=== PATIENT | female | born 1995 | race Caucasian/White ===

== ENCOUNTER → 2016-11-02 | Outpatient (REF) | payer OTHER, MEDICAID ==
[~2016-11-02] MED LIST: COLA100C PO; IBUP600T26 PO; IBUP800T23 PO; STUACAP PO; TYLE325T5 PO; ZOFR20TA PO
== END ==
LOC: M LAB REF 16:57
PROVIDERS: ATTEND Obstetrics & Gynecology
DX: Z11.3 Encounter for screening for infections with a predominantly sexual mode of transmission (principal)

== ENCOUNTER → 2016-11-06 | Outpatient (CLI) | payer OTHER, MEDICAID ==
--- NOTE | 2016-11-06 11:16 | REP ---
Clinical: Pelvic pain . Technique: Transabdominal pelvic ultrasound followed by transvaginal examination for better evaluation of the endometrium and adnexa with color Doppler evaluation of the ovaries. Findings: Bladder is unremarkable and measures 6.8 x 7.8 x 4.2 cm . Normal anteverted uterus measures 8.7 x 4.1 x 5.3 cm . The endometrial complex measures 10 mm thickness. No discrete uterine or endometrial abnormalities are appreciated. Bilateral ovaries are normal in appearance and vascularity without evidence for torsion. Right ovary measures 3.5 x 3.0 x 2.5 cm with 2.1 cm hemorrhagic cyst ; R I = 0.32 of . Left ovary measures 3.2 x 2.6 x 2.4 cm with multiple follicles ; R I = 0.48 . No pelvic fluid or adnexal mass lesion . Impression: 1. normal pelvic ultrasound. 2.1 cm right hemorrhagic ovarian cyst. No evidence for torsion. Signed by Abraham Paige MD 11/06/2016 11:08 A
== END ==
LOC: M RAD 10:32
PROVIDERS: ATTEND Obstetrics & Gynecology
DX: R10.2 Pelvic and perineal pain (principal); N83.201 Unspecified ovarian cyst, right side

== ENCOUNTER → 2017-01-30 | Outpatient (REF) | payer OTHER, MEDICAID ==
[~2017-01-30] MED LIST changes: -COLA100C PO; +COLA100C3 PO
== END ==
LOC: M LAB REF 17:01
PROVIDERS: ATTEND Obstetrics & Gynecology
DX: R10.2 Pelvic and perineal pain (principal)

== ENCOUNTER → 2017-02-04 | Outpatient (CLI) | payer MEDICAID, OTHER ==
--- NOTE | 2017-02-04 09:11 | REP ---
Clinical: Right upper quadrant pain. Technique: Real time donahue scale ultrasound examination using curved array transducer. Findings: Liver and pancreas are normal in contour, size, and echogenicity without focal hepatic or pancreatic lesions identified. The gallbladder is normal and without gallstones, wall thickening, or pericholecystic fluid. No biliary ductal dilatation is appreciated and the common bile duct measures 4 mm diameter. Right kidney is relatively normal in reniform shape without hydronephrosis and includes simple appearing 3 cm upper pole cyst. Right kidney measures 11.8 x 3.6 x 5.4 cm. No ascites. Visualized abdominal aorta normal. Impression: 3 cm simple right renal cyst. Otherwise normal right upper quadrant ultrasound. Signed by Abraham Paige MD 02/04/2017 09:03 A
--- NOTE | 2017-02-04 14:07 | REP ---
Clinical: Right lower quadrant pelvic pain. Technique: Transabdominal pelvic ultrasound followed by transvaginal examination for better evaluation of the endometrium and adnexa with color Doppler evaluation of the ovaries. Findings: Bladder is unremarkable and measures approximately 7.1 x 9.0 x 5.3 cm . Normal anteverted uterus measures 9.7 x 4.4 x 6.9 cm . The endometrial complex measures 5.7 - 8.9 mm thickness. Cash Checker is suggest the possibility of bicornuate versus septated uterus which is not confirmed on prior ultrasound dated 11/06/[address] dated 11/02/2011. No discrete uterine or endometrial abnormalities are appreciated. Bilateral ovaries are normal in appearance and vascularity without evidence for torsion. Right ovary measures 2.1 x 1.9 x 2.2 cm ; R I = 0.55 . Left ovary measures 3.1 x 2.1 x 2.9 cm with 1.8 cm hemorrhagic cyst / follicle; R I = 0.48 . Possible 1.2 cm right paraovarian cyst cannot be excluded Impression: 1. Possible 1.2 cm right paraovarian cyst cannot be excluded. Consider follow-up examination in 4-6 weeks to evaluate for resolution. 2. Transverse as described possible bicornuate versus septated uterus which is not confirmed by prior ultrasound or CT and correlation may be warranted. Signed by Abraham Paige MD 02/04/2017 01:58 P
== END ==
LOC: M RAD 07:24
PROVIDERS: ATTEND Obstetrics & Gynecology
DX: N28.1 Cyst of kidney, acquired (principal)

== ENCOUNTER → 2017-03-06 | Outpatient (CLI) | payer OTHER, MEDICAID ==
[2017-03-06 19:49] LABS: MEAN CORPUSCULAR HEMOGLOBIN 28.4 pg (27.0-33.0); MEAN CORPUSCULAR VOLUME 88.8 fl (80.0-96.0); WHITE BLOOD COUNT 6.7 K/mm3 (4.0-10.0)
[2017-03-06 20:15] LABS: FREE T4 0.95 NG/DL (0.78-1.33)
--- NOTE | 2017-03-07 05:01 | REP ---
Clinical: Chest and abdominal pain with shortness of breath . Comparison: 08/26/2016 . Technique: PA and lateral. Findings: The mediastinum and cardiac silhouette are normal. The lung hensley are clear and without acute consolidation, effusion, or pneumothorax. The skeletal structures are intact and normal. Impression: 1. No acute cardiopulmonary process. Signed by Abraham Paige MD 03/07/2017 04:53 A
[2017-03-07 10:57] LABS: CONTROL LINE HPYORI INT CTR LINE PRESENT
== END ==
LOC: M WUC 17:20
PROVIDERS: ATTEND Obstetrics & Gynecology
DX: R10.84 Generalized abdominal pain (principal); R06.02 Shortness of breath

== ENCOUNTER → 2017-03-18 | Outpatient (REF) | payer OTHER | LOC: M LAB REF 16:45 | PROVIDERS: ATTEND Physician Assistant | DX: J02.9 Acute pharyngitis, unspecified (principal) ==

== ENCOUNTER → 2017-04-22 | Outpatient (CLI) | payer OTHER ==
[~2017-04-22] MED LIST changes: -COLA100C3 PO; +COLA100C5 PO; +IBUP-1022 PO; +IBUP1TAB7 PO; -IBUP600T26 PO; -IBUP800T23 PO; +MELA3CAP2 PO; +PRENTAB40 PO
[2017-04-22 21:12] LABS: BASO % 0.3 % (0.0-1.0); EOS # 0.1 K/mm3 (0.0-0.50); EOS % 1.3 % (0.0-3.0); LARGE UNSTAINED CELL # 0.1 K/mm3 (0.0-0.4); LARGE UNSTAINED CELL % 1.3 % (0.0-4.0); LYMPH # 1.3 K/mm3 (1.5-6.5); LYMPH % 20.7 % (24.0-44.0); MEAN CORPUSCULAR HEMOGLOBIN 28.9 pg (27.0-33.0); MEAN CORPUSCULAR HGB CONC 32.2 g/dl (32.0-36.5); MEAN CORPUSCULAR VOLUME 89.8 fl (80.0-96.0); MONO # 0.3 K/mm3 (0.0-0.8); MONO % 4.7 % (0.0-5.0); NEUTROPHILS # 4.3 K/mm3 (1.8-7.7); NEUTROPHILS % 71.7 % (36.0-66.0); PLATELET COUNT, AUTOMATED 215 k/mm3 (150-450); RED CELL DISTRIBUTION WIDTH 14.5 % (11.5-14.5); WHITE BLOOD COUNT 5.9 K/mm3 (4.0-10.0)
[2017-04-24 10:34] LABS: HBsAg Prenatal NEGATIVE (NEGATIVE)
== END ==
LOC: M WUC 16:01
PROVIDERS: ATTEND Advanced Practice Midwife
DX: Z34.81 Encounter for supervision of other normal pregnancy, first trimester (principal)

== ENCOUNTER 2017-06-15 16:32 | Emergency (ER) | payer OTHER ==
[~2017-06-15] VITALS: Ht 160 cm; Wt 56.8 kg
[~2017-06-15 16:32] MED LIST changes: -MELA3CAP2 PO; -PRENTAB40 PO
[2017-06-15] MEDS ORDERED: PRENTAB40 PO (16:45)
[2017-06-15] MEDS ORDERED: MELA3CAP2 PO (16:45)
[2017-06-15 17:32] LABS: BASO % 0.1 % (0.0-1.0); EOS # 0.1 K/mm3 (0.0-0.50); EOS % 1.4 % (0.0-3.0); LARGE UNSTAINED CELL # 0.1 K/mm3 (0.0-0.4); LYMPH # 1.4 K/mm3 (1.5-6.5); LYMPH % 21.8 % (24.0-44.0); MEAN CORPUSCULAR HEMOGLOBIN 30.4 pg (27.0-33.0); MEAN CORPUSCULAR HGB CONC 34.5 g/dl (32.0-36.5); MEAN CORPUSCULAR VOLUME 88.1 fl (80.0-96.0); MONO # 0.2 K/mm3 (0.0-0.8); MONO % 3.6 % (0.0-5.0); NEUTROPHILS # 4.6 K/mm3 (1.8-7.7); NEUTROPHILS % 71.1 % (36.0-66.0); PLATELET COUNT, AUTOMATED 197 k/mm3 (150-450); RED CELL DISTRIBUTION WIDTH 14.5 % (11.5-14.5); WHITE BLOOD COUNT 6.4 K/mm3 (4.0-10.0)
[2017-06-15 17:52] LABS: ALBUMIN 3.3 GM/DL (3.2-5.2); ALBUMIN/GLOBULIN RATIO 0.77 (1.00-1.93); ALKALINE PHOSPHATASE 85 U/L (45-117); ALT/SGPT 17 U/L (12-78); AMYLASE 65 U/L (25-115); ANION GAP 8 MEQ/L (8-16); AST/SGOT 10 U/L (15-37); BILIRUBIN,DIRECT < 0.1 MG/DL (0.0-0.2); BILIRUBIN,TOTAL 0.2 MG/DL (0.2-1.0); BLOOD UREA NITROGEN 7 MG/DL (7-18); CALCIUM LEVEL 8.3 MG/DL (8.5-10.1); CARBON DIOXIDE LEVEL 24 MEQ/L (21-32); CHLORIDE LEVEL 108 MEQ/L (98-107); CREATININE FOR GFR 0.56 MG/DL (0.55-1.02); GLUCOSE, FASTING 89 MG/DL (70-105); POTASSIUM SERUM 3.5 MEQ/L (3.5-5.1); SODIUM LEVEL 140 MEQ/L (136-145); TOTAL PROTEIN 7.6 GM/DL (6.4-8.2)
[2017-06-15] MEDS ORDERED: ACETAMINOPHEN 325 MG TAB PO ONE (18:00)
--- NOTE | 2017-06-15 18:10 | REPUSA ---
OBSTETRICAL ULTRASOUND INDICATION: OB screening. Pain. FINDINGS: A single live intrauterine gestation was identified with a heart rate of 147 bpm. The amniotic fluid index was normal. The placenta was posterior, without evidence of placenta previa. Th e fetus was in a variable position. The cervix is closed, measuring 4.2 cm. Estimated weight is 257 g. The cranium and ventricles are unremarkable. Posterior fossa is within normal limits. The spine demonstrates normal contour and appearance. The orbits, facial anatomy, nasal anatomy, and lip s are normal in appearance. The upper extremities appear grossly unremarkable. The stomach, kid neys, bladder, and diaphragm are intact. The heart, three vessel umbilical cord, and lower extremitie s were not fully visualized on this study. BIOMETRIC MEASUREMENTS BPD 4.3 cm HC 15.9 cm AC 13.3 cm FL 2.8 cm IMPRESSION: 1. Single live fetus based on today's measurements at 18 weeks 4 days with estimated due date of 11/12. 2. No visualized abnormality detected on the survey. However, the heart, umbilical cord, and lo wer extremities were not fully visualized because of the position of the fetus. If there is further c linical concern, a repeat study could be performed.
[2017-06-15 18:41] VITALS: BP 100/66
== END 2017-06-15 18:43 | disposition home or self-care (01) ==
LOC: M ED 16:32
DX: O99.89 Other specified diseases and conditions complicating pregnancy, childbirth and the puerperium (principal); R10.13 Epigastric pain; D64.9 Anemia, unspecified; Z87.442 Personal history of urinary calculi; Z3A.18 18 weeks gestation of pregnancy; Z79.899 Other long term (current) drug therapy; Z88.8 Allergy status to other drugs, medicaments and biological substances

== ENCOUNTER → 2017-06-21 | Outpatient (CLI) | payer OTHER ==
[~2017-06-21] MED LIST changes: +MELA3CAP2 PO; +PRENTAB40 PO
== END ==
LOC: M RAD 13:45
PROVIDERS: ATTEND Obstetrics & Gynecology
DX: Z36 Encounter for antenatal screening of mother (principal)

== ENCOUNTER → 2017-07-05 | Outpatient (CLI) | payer OTHER ==
--- NOTE | 2017-07-05 19:26 | REP ---
Obstetric sonography: History: Supervision of for anatomy. Follow-up. Findings: Scanning through the gravid uterus demonstrates a viable single intrauterine gestation in a breech lie. motion is observed and heart rate is recorded at 147 beats per minute. A posterior grade zero placenta is seen without evidence of previa or abruption. Amniotic fluid is subjectively normal. Closed cervical length is 3.9 cm. There is a cyst in the maternal right ovary likely corpus luteum. This measures 0.8 cm. There has been appropriate interval growth. The umbilical cord is seen adjacent to the neck. spine is less than optimally seen today although this was structures visualized previously the. The following anatomic structures are identified today and felt to be unremarkable: cranium, choroid plexus, cavum, cerebellum and posterior fossa, face and profile, lungs, four-chamber heart with left and right ventricular outflow tract views, diaphragm, left-sided stomach, abdominal wall cord insertion, three-vessel umbilical cord, kidneys and bladder, upper and lower extremities. Biometry chart: BPD 5.0 cm 21 weeks 2 days Head circumference 19.4 cm 21 weeks 4 days Abdominal, 17.1 cm 22 weeks 0 days Femur length 3.6 cm 21 weeks 3 days Humeral length 3.7 cm 22-week 6 days HC/AC ratio normal 1.13, cephalic index normal, 0.71 estimated weight 444 grams 0 pounds 15 ounces at the 57th percentile for 21 weeks 3 days. Impression: Viable single intrauterine gestation at 21-week 6 days by today's composite criteria. Expected gestational age estimate based on prior sonography 21 weeks 5 days. In conjunction with the prior study, anatomic survey is felt to be complete. ARELI by prior sonography November 10, 2017. Signed by Mariano Saldivar MD 07/06/2017 02:10 P
== END ==
LOC: M RAD 16:25
PROVIDERS: ATTEND Obstetrics & Gynecology
DX: Z34.82 Encounter for supervision of other normal pregnancy, second trimester (principal); Z3A.21 21 weeks gestation of pregnancy

== ENCOUNTER → 2017-09-02 | Outpatient (CLI) | payer OTHER ==
[2017-09-02 18:01] LABS: MEAN CORPUSCULAR HEMOGLOBIN 28.2 pg (27.0-33.0); MEAN CORPUSCULAR HGB CONC 31.2 g/dl (32.0-36.5); MEAN CORPUSCULAR VOLUME 90.4 fl (80.0-96.0); PLATELET COUNT, AUTOMATED 200 10^3/uL (150-450); RED CELL DISTRIBUTION WIDTH 13.4 % (11.5-14.5); WHITE BLOOD COUNT 8.9 10^3/uL (4.0-10.0)
== END ==
LOC: M WUC 14:07
PROVIDERS: ATTEND Obstetrics & Gynecology
DX: Z34.82 Encounter for supervision of other normal pregnancy, second trimester (principal)

== ENCOUNTER → 2017-10-16 | Outpatient (REF) | payer OTHER | LOC: M LAB REF 17:23 | DX: Z34.83 Encounter for supervision of other normal pregnancy, third trimester (principal); Z36.85 Encounter for antenatal screening for Streptococcus B ==

== ENCOUNTER 2017-10-20 19:36 | Outpatient (CLI) | payer OTHER | END 2017-10-20 22:00 | disposition home or self-care (01) | LOC: M LDO 19:36 | DX: O47.03 False labor before 37 completed weeks of gestation, third trimester (principal); Z3A.36 36 weeks gestation of pregnancy | CPT/HCPCS: 59025 ==

== ENCOUNTER 2017-10-30 23:50 | Inpatient (IN) | payer MEDICAID, OTHER ==
[2017-10-31] MEDS ORDERED: LR 1,000 ML IV (00:54)
[2017-10-31 02:08] LABS: HEMATOCRIT 36.5 % (36.0-47.0); HEMOGLOBIN 12.2 g/dl (12.0-16.0); MEAN CORPUSCULAR HEMOGLOBIN 31.2 pg (27.0-33.0); MEAN CORPUSCULAR HGB CONC 33.4 g/dl (32.0-36.5); MEAN CORPUSCULAR VOLUME 93.4 fl (80.0-96.0); PLATELET COUNT, AUTOMATED 157 10^3/uL (150-450); RED BLOOD COUNT 3.91 10^6/uL (4.00-5.40); RED CELL DISTRIBUTION WIDTH 17.2 % (11.5-14.5); WHITE BLOOD COUNT 10.8 10^3/uL (4.0-10.0)
[2017-10-31] MEDS: PROMETHAZINE INJ 25 MG/ML VIAL (J2550) IV (02:38)
[2017-10-31] MEDS: BUTORPHANOL 2 MG/ML INJ (J0595) IV (02:39)
[2017-10-31] MEDS ORDERED: FENTANYL 2MCG/ML ROPIVACAINE 0.2% IN 0.9% NACL 200ML IVBAG As Ordered (13:34)
[2017-10-31] MEDS: OXYTOCIN DRIP 30 UNITS in APPROPRIATE DILUENT 1 EA IV ×2 (13:41→20:11)
[2017-10-31] MEDS: PSEUDOEPHEDRINE 30 MG TAB PO (13:42)
[2017-10-31] MEDS: LACTATED RINGER'S 1000 ML IV (13:42)
[2017-10-31] MEDS ORDERED: DIBUCAINE 1% OINTMENT 30GM TOP (20:15)
[2017-10-31] MEDS ORDERED: MEASLES,MUMPS,RUBELLA VACCINE INJ (MMR-II) (90707) SC (20:15)
[2017-10-31] MEDS ORDERED: PROMETHAZINE 25 MG TAB PO (20:15)
[2017-10-31] MEDS ORDERED: ONDANSETRON 4MG/2ML VIAL (J2405) IV (20:15)
[2017-10-31] MEDS ORDERED: RHOGAM 300 MCG (1500 IU) INJ (J2790) IM (20:15)
[2017-10-31] MEDS: ACETAMINOPHEN 500 MG TAB PO (20:39)
[2017-11-01] MEDS: PSEUDOEPHEDRINE 30 MG TAB PO ×3 (01:15→20:56)
[2017-11-01] MEDS: IBUPROFEN 800 MG TAB PO ×2 (06:45→17:55)
[2017-11-01] MEDS: PRENATAL VITAMINS CHEWABLE TABLET PO (08:26)
[2017-11-01] MEDS: DOCUSATE SODIUM 100 MG CAP PO (10:48)
[2017-11-01] MEDS: ACETAMINOPHEN 500 MG TAB PO ×2 (10:49→20:57)
[2017-11-01] MEDS: ADACEL/BOOSTRIX VACCINE (DIPHTH/PERTUSS/ACELL/TETANUS)0.5ML SYR (90715) IM (17:26)
[2017-11-01] MEDS: LR 1,000 ML IV ×4 (20:11→21:05)
[2017-11-02] MEDS: SODIUM CHLORIDE NASAL 0.65% SPRAY BTL (OCEAN) ×2 (03:17→05:57)
[2017-11-02] MEDS: PSEUDOEPHEDRINE 30 MG TAB PO (03:17)
[2017-11-02] MEDS: IBUPROFEN 800 MG TAB PO (03:22)
[2017-11-02] MEDS: LR 1,000 ML IV (04:11)
[2017-11-02 05:57] LABS: BEDSIDE GLUCOSE 104 MG/DL (70-105)
[2017-11-02 05:57] LABS: BEDSIDE GLUCOSE 62 MG/DL (70-105)
[2017-11-02 05:57] LABS: BEDSIDE GLUCOSE 61 MG/DL (70-105)
[2017-11-02 05:57] LABS: BEDSIDE GLUCOSE 51 MG/DL (70-105)
[2017-11-02] MEDS: PRENATAL VITAMINS CHEWABLE TABLET PO (07:47)
[2017-11-02] MEDS: ACETAMINOPHEN 500 MG TAB PO (09:06)
== END 2017-11-02 13:45 | disposition home or self-care (01) | DRG 560 ==
LOC: M LDO 23:50 → M LDI 10-31 00:57 → M OBS 10-31 21:54
PROVIDERS: Obstetrics & Gynecology
PROC: 10E0XZZ Delivery of Products of Conception, External Approach (ICD-10-PCS; principal; 2017-10-31)
DX: O41.03X0 Oligohydramnios, third trimester, not applicable or unspecified (principal); Z37.0 Single live birth; Z3A.38 38 weeks gestation of pregnancy

== ENCOUNTER 2017-12-08 20:04 | Emergency (ER) | payer MEDICAID ==
[2017-12-08 20:42] LABS: BASO % 0.5 % (0.0-1.0); EOS # 0.5 10^3/uL (0.0-0.50); HEMATOCRIT 40.6 % (36.0-47.0); HEMOGLOBIN 13.4 g/dl (12.0-16.0); IMMATURE GRANULOCYTE % 0.3 % (0-3.0); LYMPH # 3.4 10^3/uL (1.5-6.5); LYMPH % 46.5 % (24.0-44.0); MEAN CORPUSCULAR HEMOGLOBIN 30.5 pg (27.0-33.0); MEAN CORPUSCULAR VOLUME 92.3 fl (80.0-96.0); MONO # 0.6 10^3/uL (0.0-0.8); MONO % 7.7 % (0.0-5.0); NEUTROPHILS # 2.8 10^3/uL (1.8-7.7); PLATELET COUNT, AUTOMATED 248 10^3/uL (150-450); RED CELL DISTRIBUTION WIDTH 13.3 % (11.5-14.5); WHITE BLOOD COUNT 7.4 10^3/uL (4.0-10.0)
[2017-12-08 21:03] LABS: CONTROL LINE HCG INT CTR LINE PRESENT; HCG, SERUM QUALITATIVE NEGATIVE (NEGATIVE)
[2017-12-08 21:19] LABS: ALBUMIN 4.2 GM/DL (3.2-5.2); ALKALINE PHOSPHATASE 120 U/L (45-117); ALT/SGPT 23 U/L (12-78); ANION GAP 10 MEQ/L (8-16); AST/SGOT 20 U/L (7-37); BILIRUBIN,TOTAL 0.3 MG/DL (0.2-1.0); BLOOD UREA NITROGEN 15 MG/DL (7-18); CALCIUM LEVEL 9.2 MG/DL (8.5-10.1); CARBON DIOXIDE LEVEL 25 MEQ/L (21-32); CHLORIDE LEVEL 105 MEQ/L (98-107); CREATININE FOR GFR 0.78 MG/DL (0.55-1.30); GLOMERULAR FILTRATION RATE > 60.0 (>60); GLUCOSE, FASTING 86 MG/DL (70-100); POTASSIUM SERUM 4.1 MEQ/L (3.5-5.1); SODIUM LEVEL 140 MEQ/L (136-145); TOTAL PROTEIN 7.7 GM/DL (6.4-8.2)
== END 2017-12-08 22:52 | disposition home or self-care (01) ==
LOC: M ED 20:04
DX: N92.0 Excessive and frequent menstruation with regular cycle (principal); D64.9 Anemia, unspecified; N83.209 Unspecified ovarian cyst, unspecified side
CPT/HCPCS: 76856

== ENCOUNTER → 2017-12-13 | Outpatient (CLI) | payer OTHER, MEDICAID ==
[2017-12-13 17:18] LABS: HEMATOCRIT 38.3 % (36.0-47.0); HEMOGLOBIN 12.6 g/dl (12.0-16.0); MEAN CORPUSCULAR HEMOGLOBIN 31.1 pg (27.0-33.0); MEAN CORPUSCULAR HGB CONC 32.9 g/dl (32.0-36.5); MEAN CORPUSCULAR VOLUME 94.6 fl (80.0-96.0); PLATELET COUNT, AUTOMATED 271 10^3/uL (150-450); RED BLOOD COUNT 4.05 10^6/uL (4.00-5.40); RED CELL DISTRIBUTION WIDTH 12.9 % (11.5-14.5); WHITE BLOOD COUNT 6.6 10^3/uL (4.0-10.0)
== END ==
LOC: M SMT 15:18
DX: R53.82 Chronic fatigue, unspecified (principal)
CPT/HCPCS: 84443

== ENCOUNTER → 2018-02-04 | Outpatient (CLI) | payer OTHER | LOC: M LRY 17:52 | DX: R10.9 Unspecified abdominal pain (principal) | CPT/HCPCS: 74021 ==

== ENCOUNTER → 2018-02-04 | Outpatient (REF) | payer OTHER ==
[2018-02-04 23:01] LABS: CHLAMYDIA DNA AMPLIFICATION NEGATIVE (NEGATIVE); GC DNA AMPLIFICATION NEGATIVE (NEGATIVE)
== END ==
LOC: M SFHCLERA 16:52
DX: R10.9 Unspecified abdominal pain (principal)
CPT/HCPCS: 87086

== ENCOUNTER → 2018-03-13 | Outpatient (REF) | payer OTHER | LOC: M SFHCLERA 19:35 | DX: J02.9 Acute pharyngitis, unspecified (principal) ==

== ENCOUNTER → 2018-06-18 | Outpatient (REF) | payer OTHER ==
[2018-06-18 23:50] LABS: CHLAMYDIA DNA AMPLIFICATION POSITIVE (NEGATIVE); GC DNA AMPLIFICATION NEGATIVE (NEGATIVE)
== END ==
LOC: M SFHCLERA 11:33
DX: N89.8 Other specified noninflammatory disorders of vagina (principal)

== ENCOUNTER → 2018-08-16 | Outpatient (REF) | payer OTHER | LOC: M SFHCLERA 17:36 | DX: R53.81 Other malaise (principal) ==

== ENCOUNTER 2018-09-16 00:54 | Emergency (ER) | payer OTHER ==
[~2018-09-16] VITALS: Ht 160 cm; Wt 50.9 kg
[~2018-09-16 00:54] MED LIST changes: +LOES1TAB9 PO; +MOTR200T44 PO; +SUDA30TA8 PO; -ZOFR20TA PO; +ZOFR4TAB16 PO
[2018-09-16] MEDS ORDERED: NS 1,000 ML IV ONE (03:00)
[2018-09-16] MEDS ORDERED: cefTRIAXone SOD 2 GM in D5W MINI-BAG PLUS 50 ML IV ONE (03:00)
[2018-09-16 03:15] LABS: BASO % 0.3 % (0.0-1.0); EOS # 0.1 10^3/uL (0.0-0.50); HEMATOCRIT 41.4 % (36.0-47.0); HEMOGLOBIN 13.8 g/dl (12.0-15.5); LYMPH # 1.7 10^3/uL (1.5-6.5); LYMPH % 15.2 % (24.0-44.0); MEAN CORPUSCULAR HEMOGLOBIN 31.5 pg (27.0-33.0); MEAN CORPUSCULAR HGB CONC 33.3 g/dl (32.0-36.5); MEAN CORPUSCULAR VOLUME 94.5 fl (80.0-96.0); MONO # 0.6 10^3/uL (0.0-0.8); MONO % 5.4 % (0.0-5.0); NEUTROPHILS # 8.9 10^3/uL (1.8-7.7); NEUTROPHILS % 77.8 % (36.0-66.0); PLATELET COUNT, AUTOMATED 231 10^3/uL (150-450); RED BLOOD COUNT 4.38 10^6/uL (4.00-5.40); WHITE BLOOD COUNT 11.4 10^3/uL (4.0-10.0)
[2018-09-16 03:29] LABS: HCG, SERUM QUALITATIVE NEGATIVE (NEGATIVE)
[2018-09-16 03:33] LABS: BLOOD UREA NITROGEN 11 MG/DL (7-18); CALCIUM LEVEL 8.4 MG/DL (8.5-10.1); CARBON DIOXIDE LEVEL 24 MEQ/L (21-32); CHLORIDE LEVEL 106 MEQ/L (98-107); CREATININE FOR GFR 0.72 MG/DL (0.55-1.30); GLOMERULAR FILTRATION RATE > 60.0 (>60); GLUCOSE, FASTING 89 MG/DL (70-100); POTASSIUM SERUM 3.8 MEQ/L (3.5-5.1); SODIUM LEVEL 139 MEQ/L (136-145)
--- NOTE | 2018-09-16 04:57 | REPVR ---
EXAM: CT Abdomen and Pelvis Without Contrast EXAM DATE/TIME: 09/16/2018 3:33 AM CLINICAL HISTORY: 22 years old, female; Pain; Abdominal pain; Generalized; Patient HX: Vaginal bleed; Additional info: [facility] TECHNIQUE: Axial computed tomography images of the abdomen and pelvis without contrast. All CT scans at this facility use at least one of these dose optimization techniques: automated exposure control; mA and/or kV adjustment per patient size (includes targeted exams where dose is matched to clinical indication); or iterative reconstruction. Coronal and sagittal reformatted images were created and reviewed. COMPARISON: CT ABD PELVIS W/O CONTRAST 11/02/2011 7:16 PM FINDINGS: Lower thorax: The visualized portions of the lung bases are normal. ABDOMEN: Liver: There are no focal liver lesions present. Gallbladder and bile ducts: The gallbladder appears partially contracted. No stones are identified. No biliary ductal dilation is seen. Pancreas: The pancreas is normal with no ductal dilation. Spleen: The spleen is normal. Adrenals: The adrenal glands are normal. Kidneys and ureters: There is a 2.8 cm cyst in the right kidney upper pole, increased slightly in size from 2.3 cm on the prior exam. No followup needed. The left kidney appears normal. There is no hydronephrosis. The nondilated distal ureters are difficult to trace, but no stones are seen along their expected course. Stomach and bowel: There is no dilation or thickening of the colon. The small bowel appears unremarkable. Appendix: A normal appendix is identified. PELVIS: Bladder: The bladder is normal. Reproductive: The uterus is unremarkable. There is a 3.0 cm cyst measuring simple fluid density in the left adnexa, likely a functional cyst in the left ovary. The right ovary appears unremarkable. ABDOMEN and PELVIS: Intraperitoneal space: There is no evidence of free intraperitoneal or pelvic fluid. There is no free intraperitoneal air. Bones/joints: No suspicious osseous lesions. No acute fractures or dislocations. Soft tissues: Unremarkable. Vasculature: The aorta is normal. No aneurysm. Lymph nodes: There is no gross lymphadenopathy. IMPRESSION: No acute abnormality identified. Electronically signed by: Sachi Lim On 09/16/2018 04:56:56 AM
[2018-09-16] MEDS ORDERED: BACT800T5 PO (05:37)
[2018-09-16] MEDS ORDERED: PYRI1TAB5 PO (05:38)
[2018-09-16 05:49] VITALS: BP 127/75
== END 2018-09-16 05:50 | disposition home or self-care (01) ==
LOC: M ED 00:54
DX: N39.0 Urinary tract infection, site not specified (principal); R31.9 Hematuria, unspecified; Z88.8 Allergy status to other drugs, medicaments and biological substances
CPT/HCPCS: 36415; 74176; 80048; 81001; 84703; 85025; 87040; 87088; 87186; 96374; 99284; J0696

== ENCOUNTER → 2018-12-21 | Outpatient (REF) | payer OTHER ==
[~2018-12-21] MED LIST changes: +BACT800T5 PO; +PYRI1TAB5 PO
== END ==
LOC: M SFHCLERA 17:26
PROVIDERS: ATTEND Nurse Practitioner Family
DX: J00 Acute nasopharyngitis [common cold] (principal)

== ENCOUNTER → 2019-01-14 | Outpatient (REF) | payer OTHER ==
[2019-01-14 18:21] LABS: CHLAMYDIA DNA AMPLIFICATION NEGATIVE (NEGATIVE); GC DNA AMPLIFICATION NEGATIVE (NEGATIVE)
== END ==
LOC: M SFHCLERA 12:37
PROVIDERS: ATTEND Nurse Practitioner Family
DX: Z11.3 Encounter for screening for infections with a predominantly sexual mode of transmission (principal); J02.9 Acute pharyngitis, unspecified

== ENCOUNTER 2019-02-27 09:22 | Emergency (ER) | payer OTHER ==
[~2019-02-27] VITALS: Ht 160 cm; Wt 52.8 kg
[2019-02-27 09:22] VITALS: BP 121/74
--- NOTE | 2019-02-27 10:42 | REP ---
CHEST, TWO VIEWS: There is no evidence of acute infiltrate. No pleural effusion is seen. The heart is normal in size. The mediastinal silhouette is unremarkable. The visualized osseous structures are intact. IMPRESSION: No acute pulmonary disease. Electronically Signed by Thomas Allen MD 03/03/2019 09:41 A
[2019-02-27] MEDS ORDERED: ONDANSETRON 4 MG ORAL DISINTEGRATING TAB (Q0162 PER 1MG) PO ONE (11:45)
[2019-02-27] MEDS ORDERED: IBUPROFEN 600 MG TAB PO ONE (11:45)
[2019-02-27 11:55] LABS: HEMOGLOBIN 13.9 g/dl (12.0-15.5); MEAN CORPUSCULAR HEMOGLOBIN 31.2 pg (27.0-33.0); MEAN CORPUSCULAR HGB CONC 32.3 g/dl (32.0-36.5); MEAN CORPUSCULAR VOLUME 96.4 fl (80.0-96.0); PLATELET COUNT, AUTOMATED 253 10^3/uL (150-450); RED BLOOD COUNT 4.46 10^6/uL (4.00-5.40); WHITE BLOOD COUNT 5.7 10^3/uL (4.0-10.0)
[2019-02-27 12:28] LABS: ALBUMIN 4.1 GM/DL (3.2-5.2); ALT/SGPT 24 U/L (12-78); BILIRUBIN,DIRECT < 0.1 MG/DL (0.0-0.2); BILIRUBIN,TOTAL 0.3 MG/DL (0.2-1.0); LIPASE 66 U/L (73-393); TOTAL PROTEIN 8.1 GM/DL (6.4-8.2)
--- NOTE | 2019-02-27 13:34 | REP ---
RIGHT RIB SERIES: Four views of the right ribs are performed and demonstrate no fracture or bone lesion. Visualized right lung is clear. IMPRESSION: Negative right rib series. Electronically Signed by Thomas Allen MD 03/03/2019 09:45 A
== END 2019-02-27 13:39 | disposition home or self-care (01) ==
LOC: M ED 09:22
DX: F10.20 Alcohol dependence, uncomplicated (principal); R07.89 Other chest pain; R11.2 Nausea with vomiting, unspecified; F17.210 Nicotine dependence, cigarettes, uncomplicated
CPT/HCPCS: 36415; 71046; 71100; 80047; 80076; 83690; 84702; 85027; 99283; Q0162

== ENCOUNTER 2019-05-26 11:25 | Emergency (ER) | payer OTHER ==
[~2019-05-26] VITALS: Ht 160 cm; Wt 52.3 kg
[2019-05-26] MEDS ORDERED: MULT1TAB8 PO (11:31)
[2019-05-26] MEDS ORDERED: IRON325T9 PO (11:31)
[2019-05-26 12:36] LABS: BASO % 0.4 % (0.0-1.0); EOS # 0.1 10^3/uL (0.0-0.5); EOS % 1.4 % (0.0-3.0); HEMATOCRIT 41.8 % (36.0-47.0); HEMOGLOBIN 13.4 g/dl (12.0-15.5); LYMPH # 1.3 10^3/uL (1.5-5.0); LYMPH % 12.9 % (24.0-44.0); MEAN CORPUSCULAR HGB CONC 32.1 g/dl (32.0-36.5); MEAN CORPUSCULAR VOLUME 96.8 fl (80.0-96.0); MONO # 0.6 10^3/uL (0.0-0.8); NEUTROPHILS % 78.9 % (36.0-66.0); PLATELET COUNT, AUTOMATED 337 10^3/uL (150-450); RED BLOOD COUNT 4.32 10^6/uL (4.00-5.40); WHITE BLOOD COUNT 10.1 10^3/uL (4.0-10.0)
[2019-05-26 12:43] LABS: GLUCOSE, URINE (UA) MANUAL NEGATIVE (NEGATIVE)
[2019-05-26 12:44] LABS: BILIRUBIN, URINE MANUAL OBSCURED (NEGATIVE); KETONE, URINE MANUAL NEGATIVE (NEGATIVE); UROBILINOGEN, URINE MANUAL OBSCURED mg/dl (NORMAL)
[2019-05-26 12:45] LABS: BACTERIA, URINE SMALL AMOUNT; HYALINE CAST, URINE NONE SEEN /lpf (0-1); RBC, URINE 20-30 /hpf (0-3); SQUAMOUS EPITHELIAL CELL URINE MOD AMOUNT /hpf (SMALL AMT)
[2019-05-26 12:46] LABS: AMORPHOUS SEDIMENT, URINE SMALL AMOUNT (NEGATIVE)
[2019-05-26 13:07] LABS: ALBUMIN 4.1 GM/DL (3.2-5.2); ALT/SGPT 19 U/L (12-78); BILIRUBIN,DIRECT 0.2 MG/DL (0.0-0.2); BILIRUBIN,TOTAL 0.5 MG/DL (0.2-1.0); BLOOD UREA NITROGEN 12 MG/DL (7-18); CALCIUM LEVEL 9.2 MG/DL (8.5-10.1); CARBON DIOXIDE LEVEL 28 MEQ/L (21-32); CHLORIDE LEVEL 108 MEQ/L (98-107); CREATININE FOR GFR 0.92 MG/DL (0.55-1.30); GLOMERULAR FILTRATION RATE > 60.0 (>60); GLUCOSE, FASTING 77 MG/DL (70-100); LIPASE 63 U/L (73-393); POTASSIUM SERUM 4.4 MEQ/L (3.5-5.1); SODIUM LEVEL 142 MEQ/L (136-145); TOTAL PROTEIN 7.5 GM/DL (6.4-8.2)
[2019-05-26 13:32] LABS: HCG, SERUM QUALITATIVE NEGATIVE (NEGATIVE)
--- NOTE | 2019-05-26 15:13 | REP ---
PELVIC ULTRASOUND: Real-time sonographic evaluation of the pelvis performed utilizing transabdominal and endovaginal technique. The bladder measures 5.2 x 5.6 x 3.0 cm. Uterus measures 9.3 x 4.5 x 6.0 cm. Endometrial thickness is 12 mm with no endometrial fluid collection. The right ovary measures 3.0 x 1.9 x 2.6 cm and left ovary 4.0 x 2.5 x 2.7 cm. There is no adnexal mass. There is mild free fluid in the pelvis. There is no evidence of ovarian torsion, RI right ovary 0.6 and left ovary 0.4. There is mild fluid in the cervical canal. IMPRESSION: Mild free fluid in the pelvis and cervix. No evidence of ovarian cyst or mass. No evidence of torsion. Electronically Signed by Thomas Allen MD 05/26/2019 04:58 P
[2019-05-26 15:46] VITALS: BP 107/71
[2019-05-26] MEDS ORDERED: AZITHROMYCIN 250 MG TAB PO ONE (16:00)
[2019-05-26] MEDS ORDERED: LIDOCAINE 1% SDV 5 ML VIAL DILUENT ONE (16:00)
[2019-05-26] MEDS ORDERED: cefTRIAXone SOD 250 MG VIAL (J0696) IM ONE (16:00)
[2019-05-26] MEDS ORDERED: MACR100C43 PO (16:02)
[2019-05-26] MEDS ORDERED: FLAG500T PO (16:02)
[2019-05-26 16:03] LABS: CHLAMYDIA DNA AMPLIFICATION NEGATIVE (NEGATIVE); GC DNA AMPLIFICATION NEGATIVE (NEGATIVE)
== END 2019-05-26 16:27 | disposition home or self-care (01) ==
LOC: M ED 11:25
DX: N39.0 Urinary tract infection, site not specified (principal); B96.89 Other specified bacterial agents as the cause of diseases classified elsewhere; N76.0 Acute vaginitis
CPT/HCPCS: 36415; 76830; 76856; 80048; 80076; 81000; 83690; 84703; 85025; 86850; 86900; 86901; 87086; 87210; 87661; 93976; 96372; 99284; J0696

== ENCOUNTER → 2019-09-24 | Outpatient (REF) | payer OTHER ==
[~2019-09-24] MED LIST changes: +FLAG500T PO; +IRON325T9 PO; +MACR100C43 PO; +MULT1TAB8 PO
[2019-09-25 12:44] LABS: APPEARANCE, URINE HAZY (CLEAR); BACTERIA, URINE AUTO NEGATIVE (NEGATIVE); BILIRUBIN, URINE AUTO NEGATIVE (NEGATIVE); BLOOD, URINE BLOOD NEGATIVE (NEGATIVE); COLOR, URINE YELLOW (YELLOW); GLUCOSE, URINE (UA) AUTO NEGATIVE (NEGATIVE); KETONE, URINE AUTO NEGATIVE (NEGATIVE); LEUKOCYTE ESTERASE, URINE AUTO NEGATIVE (NEGATIVE); NITRITE, URINE AUTO NEGATIVE (NEGATIVE); PROTEIN, URINE AUTO NEGATIVE (NEGATIVE); RBC, URINE AUTO 0 /HPF (0-3); SPECIFIC GRAVITY URINE AUTO 1.021 (1.002-1.035); SQUAMOUS EPITHELIAL CELL UR AU 3 /HPF (0-6); UROBILINOGEN, URINE AUTO 0.2 mg/dL (0.0-2.0); WBC, URINE AUTO 2 /HPF (0-3)
[2019-09-25 13:28] LABS: CHLAMYDIA DNA AMPLIFICATION NEGATIVE (NEGATIVE); GC DNA AMPLIFICATION NEGATIVE (NEGATIVE)
== END ==
LOC: M SFHCWAGY 11:26
PROVIDERS: ATTEND Obstetrics & Gynecology
DX: R30.0 Dysuria (principal)

== ENCOUNTER 2019-11-12 10:53 | Emergency (ER) | payer OTHER ==
[~2019-11-12] VITALS: Ht 160 cm; Wt 51.5 kg
[2019-11-12 11:56] LABS: BASO % 0.2 % (0.0-1.0); EOS % 0.1 % (0.0-3.0); HEMATOCRIT 46.6 % (36.0-47.0); HEMOGLOBIN 15.3 g/dl (12.0-15.5); LYMPH # 0.4 10^3/uL (1.5-5.0); LYMPH % 3.2 % (24.0-44.0); MEAN CORPUSCULAR HEMOGLOBIN 31.6 pg (27.0-33.0); MEAN CORPUSCULAR HGB CONC 32.8 g/dl (32.0-36.5); MEAN CORPUSCULAR VOLUME 96.3 fl (80.0-96.0); MONO # 0.4 10^3/uL (0.0-0.8); MONO % 3.4 % (0.0-5.0); NEUTROPHILS % 92.6 % (36.0-66.0); PLATELET COUNT, AUTOMATED 233 10^3/uL (150-450); RED BLOOD COUNT 4.84 10^6/uL (4.00-5.40); WHITE BLOOD COUNT 10.8 10^3/uL (4.0-10.0)
[2019-11-12 12:26] LABS: ALBUMIN 4.6 GM/DL (3.2-5.2); ALT/SGPT 19 U/L (12-78); BILIRUBIN,DIRECT 0.3 MG/DL (0.0-0.2); BLOOD UREA NITROGEN 17 MG/DL (7-18); CALCIUM LEVEL 9.5 MG/DL (8.5-10.1); CARBON DIOXIDE LEVEL 26 MEQ/L (21-32); CHLORIDE LEVEL 108 MEQ/L (98-107); CREATININE FOR GFR 0.94 MG/DL (0.55-1.30); GLOMERULAR FILTRATION RATE > 60.0 (>60); GLUCOSE, FASTING 103 MG/DL (70-100); LIPASE 51 U/L (73-393); POTASSIUM SERUM 3.8 MEQ/L (3.5-5.1); SODIUM LEVEL 140 MEQ/L (136-145); TOTAL PROTEIN 8.4 GM/DL (6.4-8.2)
[2019-11-12 12:32] LABS: HCG, SERUM QUALITATIVE NEGATIVE (NEGATIVE)
[2019-11-12 12:35] LABS: INFLUENZA A AMPLIFICATION NEGATIVE (NEGATIVE); INFLUENZA B AMPLIFICATION NEGATIVE (NEGATIVE)
[2019-11-12] MEDS: ONDANSETRON 4MG/2ML VIAL (J2405) IV ONE (12:49)
[2019-11-12] MEDS: NS 1,000 ML IV ONE (12:49)
[2019-11-12] MEDS ORDERED: ZOFR8TAB24 PO (15:04)
[2019-11-12 15:31] VITALS: BP 112/64
[2019-11-12] MEDS: ACETAMINOPHEN TAB 650MG DOSE (2X325MG) PO ONE (15:34)
== END 2019-11-12 16:23 | disposition home or self-care (01) ==
LOC: M ED 10:53
DX: A08.11 Acute gastroenteropathy due to Norwalk agent (principal); Z87.442 Personal history of urinary calculi; Z87.448 Personal history of other diseases of urinary system; Z87.42 Personal history of other diseases of the female genital tract; Z98.890 Other specified postprocedural states; Z88.8 Allergy status to other drugs, medicaments and biological substances; Z86.2 Personal history of diseases of the blood and blood-forming organs and certain disorders involving the immune mechanism
CPT/HCPCS: 80048; 80076; 81001; 83690; 84703; 85025; 87502; 87507; 96374; 99284; J2405

== ENCOUNTER 2020-02-24 16:16 | Emergency (ER) | payer OTHER ==
[~2020-02-24 16:16] MED LIST changes: +ZOFR8TAB24 PO
[2020-02-24] MEDS ORDERED: NS 1,000 ML IV ONE (17:00)
[2020-02-24] MEDS ORDERED: ONDANSETRON 4MG/2ML VIAL IV ONE (17:00)
[2020-02-24 17:11] LABS: BASO % 0.3 % (0.0-1.0); EOS % 0.7 % (0.0-3.0); HEMATOCRIT 40.9 % (36.0-47.0); LYMPH # 0.8 10^3/uL (1.5-5.0); LYMPH % 14.1 % (24.0-44.0); MEAN CORPUSCULAR HEMOGLOBIN 32.1 pg (27.0-33.0); MEAN CORPUSCULAR HGB CONC 34.2 g/dl (32.0-36.5); MEAN CORPUSCULAR VOLUME 93.8 fl (80.0-96.0); MONO # 0.4 10^3/uL (0.0-0.8); MONO % 7.5 % (0.0-5.0); NEUTROPHILS # 4.6 10^3/uL (1.5-8.5); NEUTROPHILS % 77.2 % (36.0-66.0); PLATELET COUNT, AUTOMATED 194 10^3/uL (150-450); RED BLOOD COUNT 4.36 10^6/uL (4.00-5.40); WHITE BLOOD COUNT 5.9 10^3/uL (4.0-10.0)
[2020-02-24 17:34] LABS: BLOOD UREA NITROGEN 10 MG/DL (7-18); CALCIUM LEVEL 8.4 MG/DL (8.5-10.1); CARBON DIOXIDE LEVEL 24 MEQ/L (21-32); CHLORIDE LEVEL 108 MEQ/L (98-107); CK-MB VALUE MASS < 1.0 NG/ML (<3.6); CPK CREATINE PHOSPHOKINASE 76 U/L (26-192); CREATININE FOR GFR 0.84 MG/DL (0.55-1.30); GLOMERULAR FILTRATION RATE > 60.0 (>60); GLUCOSE, FASTING 109 MG/DL (70-100); MB/CK RELATIVE INDEX 1.32 (< OR =4); POTASSIUM SERUM 3.5 MEQ/L (3.5-5.1); SODIUM LEVEL 141 MEQ/L (136-145); TROPONIN I < 0.02 NG/ML (< 0.10)
--- NOTE | 2020-02-24 19:25 | ECGEPIP ---
[facility] - ED Test Date: 2020-02-24 Pat Name: VIGNESH DUNN Department: Room: - Gender: Female Supervisor Extrusion: : 1995 Requested By: Stephanie Gutiérrez Order Number: [id number] Reading MD: Stephanie Gutiérrez Measurements Intervals Lutz Rate: 109 P: 60 IL: 169 QRS: 69 QRSD: 91 T: 33 QT: 342 QTc: 461 Interpretive Statements SINUS TACHYCARDIA NONSPECIFIC T-WAVE ABNORMALITY ABNORMAL RHYTHM ECG PROLONGED QTC 08/26/16 RATE INCREASED PROLONGED QTC NOW NONSPECIFIC ST T WAVE CHANGES Electronically Signed on 02-24-2020 19:25:18 EDT by Stephanie Gutiérrez
[2020-02-24 20:00] VITALS: BP 99/57
[2020-02-24 20:50] LABS: AMPHETAMINES LEVEL URINE NEGATIVE (NEGATIVE); BARBITURATES URINE NEGATIVE (NEGATIVE); BENZODIAZEPINES URINE NEGATIVE (NEGATIVE); CANNABINOIDS URINE POSITIVE (NEGATIVE); COCAINE METABOLITE URINE NEGATIVE (NEGATIVE); METHADONE URINE NEGATIVE (NEGATIVE); OPIATES URINE NEGATIVE (NEGATIVE); PHENCYCLIDINE URINE NEGATIVE (NEGATIVE)
== END 2020-02-24 20:16 | disposition home or self-care (01) ==
LOC: M ED 16:16 → EDBD 16:16 → M ED 20:16
DX: F19.129 Other psychoactive substance abuse with intoxication, unspecified (principal); R94.31 Abnormal electrocardiogram [ECG] [EKG]; Z88.8 Allergy status to other drugs, medicaments and biological substances
CPT/HCPCS: 80048; 80307; 82550; 82553; 85025; 93005; 93041; 94760; 96361; 96374; 99285; J2405

== ENCOUNTER → 2021-08-25 | Outpatient (REF) ==
[2021-08-25 14:08] LABS: RSV AMPLIFICATION NEGATIVE (NEGATIVE)
== END ==
LOC: M EMP 12:45
PROVIDERS: ATTEND Family Medicine
DX: Z20.822 Contact with and (suspected) exposure to COVID-19 (principal)

== ENCOUNTER → 2021-08-30 | Outpatient (REF) | payer OTHER ==
[2021-08-30 18:45] LABS: GC DNA AMPLIFICATION NEGATIVE (NEGATIVE)
== END ==
LOC: M SFHCWAGY 16:48
PROVIDERS: ATTEND Obstetrics & Gynecology
DX: Z12.4 Encounter for screening for malignant neoplasm of cervix (principal); R10.2 Pelvic and perineal pain

== ENCOUNTER → 2021-09-18 | Outpatient (REF) | LOC: M LABSMTC 12:18 | PROVIDERS: ATTEND Family Medicine | DX: Z20.822 Contact with and (suspected) exposure to COVID-19 (principal) ==

== ENCOUNTER → 2021-09-22 | Outpatient (REF) | LOC: M LABSMTC 09:02 | PROVIDERS: ATTEND Family Medicine | DX: Z20.822 Contact with and (suspected) exposure to COVID-19 (principal) ==

== ENCOUNTER → 2022-06-20 | Outpatient (REF) | payer OTHER ==
[2022-06-20 14:01] LABS: APPEARANCE, URINE MANUAL CLEAR (CLEAR); COLOR, URINE MANUAL DK YELLOW (YELLOW)
[2022-06-20 14:02] LABS: BILIRUBIN, URINE MANUAL NEGATIVE (NEGATIVE); BLOOD URINE MANUAL POSITIVE (NEGATIVE); GLUCOSE, URINE (UA) MANUAL NEGATIVE (NEGATIVE); KETONE, URINE MANUAL NEGATIVE (NEGATIVE); LEUKOCYTE ESTERASE, URINE MAN POSITIVE (NEGATIVE); NITRITE, URINE MANUAL POSITIVE (NEGATIVE); PROTEIN, URINE MANUAL 2+ mg/dL (NEGATIVE); UROBILINOGEN, URINE MANUAL NORMAL (NORMAL)
[2022-06-20 14:23] LABS: RBC, URINE 40-50 /hpf (0-3); WBC, URINE 30-40 /hpf (0-3)
[2022-06-20 14:27] LABS: SQUAMOUS EPITHELIAL CELL URINE MOD AMOUNT /hpf (SMALL AMT)
[2022-06-20 14:28] LABS: BACTERIA, URINE MOD AMOUNT
[2022-06-20 16:36] LABS: GC DNA AMPLIFICATION NEGATIVE (NEGATIVE)
== END ==
LOC: M LAB REF 13:19
PROVIDERS: ATTEND Physician Assistant
DX: N39.0 Urinary tract infection, site not specified (principal)

== ENCOUNTER → 2022-08-24 | Outpatient (REF) | payer OTHER ==
[2022-08-25 08:47] LABS: APPEARANCE, URINE MANUAL CLEAR (CLEAR)
[2022-08-25 08:48] LABS: COLOR, URINE MANUAL AMBER (YELLOW); SPECIFIC GRAVITY,URINE MANUAL 1.015 (1.002-1.035)
[2022-08-25 08:49] LABS: BILIRUBIN, URINE MANUAL 2+ (NEGATIVE); GLUCOSE, URINE (UA) MANUAL NEGATIVE (NEGATIVE); KETONE, URINE MANUAL NEGATIVE (NEGATIVE); NITRITE, URINE MANUAL POSITIVE (NEGATIVE); PROTEIN, URINE MANUAL NEGATIVE (NEGATIVE); UROBILINOGEN, URINE MANUAL 1 MG mg/dl (NORMAL)
[2022-08-25 08:50] LABS: BLOOD URINE MANUAL POSITIVE (NEGATIVE); LEUKOCYTE ESTERASE, URINE MAN NEGATIVE (NEGATIVE)
[2022-08-25 09:08] LABS: BACTERIA, URINE SMALL AMOUNT; HYALINE CAST, URINE NONE SEEN /lpf (0-1); RBC, URINE 0-1 /hpf (0-3); SQUAMOUS EPITHELIAL CELL URINE SMALL AMOUNT /hpf (SMALL AMT)
[2022-08-25 11:50] LABS: GC DNA AMPLIFICATION NEGATIVE (NEGATIVE)
== END ==
LOC: M LAB REF 19:56
PROVIDERS: ATTEND Physician Assistant Medical
DX: N39.0 Urinary tract infection, site not specified (principal)

== ENCOUNTER → 2023-01-15 | Outpatient (CLI) | payer OTHER | LOC: M WHC 08:40 | PROVIDERS: ATTEND Physician Assistant Medical | DX: N63.11 Unspecified lump in the right breast, upper outer quadrant (principal); Z53.9 Procedure and treatment not carried out, unspecified reason ==

== ENCOUNTER → 2023-02-04 | Outpatient (REF) ==
[2023-02-04 16:32] LABS: RSV AMPLIFICATION NEGATIVE (NEGATIVE)
== END ==
LOC: M EMP 15:22
PROVIDERS: ATTEND Family Medicine
DX: Z20.828 Contact with and (suspected) exposure to other viral communicable diseases (principal)

== ENCOUNTER → 2023-02-05 | Outpatient (REF) | LOC: M EMP 10:27 | PROVIDERS: ATTEND Family Medicine | DX: Z11.52 Encounter for screening for COVID-19 (principal) ==

== ENCOUNTER → 2023-05-02 | Outpatient (REF) | payer OTHER ==
[2023-05-02 21:29] LABS: URINE PREG TEST NEGATIVE (NEGATIVE)
== END ==
LOC: M LAB REF 21:06
PROVIDERS: ATTEND Physician Assistant
DX: M79.10 Myalgia, unspecified site (principal); R11.0 Nausea